=== PATIENT | female | born 1985 | race American Indian/Alaskan Native ===

== ENCOUNTER 2022-01-29 19:32 | Emergency (ER) | payer OTHER ==
[2022-01-29 20:24] VITALS: BP 139/80
[2022-01-29 21:32] LABS: Alanine Aminotransferase 15 units/L (7-56); Albumin 3.3 g/dL (3.9-5); Blood Urea Nitrogen 7 mg/dL (7-17); Calcium 8.3 mg/dL (8.4-10.2); Hemolysis Index 3
[2022-01-29 21:39] LABS: BUN/Creatinine Ratio 14
== END 2022-01-30 07:20 | disposition left against medical advice (07) ==
LOC: ED 19:32
DX: O20.8 Other hemorrhage in early pregnancy (principal); Z53.21 Procedure and treatment not carried out due to patient leaving prior to being seen by health care provider; Z3A.00 Weeks of gestation of pregnancy not specified
CPT/HCPCS: 36415; 80048; 80053